=== PATIENT | male | born 1965 | race Caucasian/White ===

== ENCOUNTER 2018-10-19 16:13 | Emergency (ER) | payer OTHER ==
[~2018-10-19] VITALS: Ht 185.4 cm; Wt 98.4 kg
[~2018-10-19 16:13] MED LIST: ATENOLOL25 MG; BICARSIM FORTE125 MG PO; CATAFLAM50 MG PO; KETO10TA2 PO; LEVSIN/SL0.125 MG PO; LEVSIN/SL0.125 MG SL; LISINOPRIL10 MG; METFORMIN HCL500 MG
== END 2018-10-19 20:51 | disposition home or self-care (01) ==
LOC: ER 16:13
DX: J11.1 Influenza due to unidentified influenza virus with other respiratory manifestations (principal)